=== PATIENT | female | born 1980 | race Caucasian/White ===

== ENCOUNTER 2017-01-27 00:29 | Emergency (ER) | payer BC ==
[2017-01-27 00:35] VITALS: RESP 18
[2017-01-27] MEDS ORDERED: DIPH,PERTUS(ACELL)TETVAC-LF 0.5 ML VIAL IM ONE (01:09)
[2017-01-27] MEDS ORDERED: LIDOCAINE/EPINEPHR/TETRACAINE 5 ML BOTTLE TOPICAL ONE (01:49)
--- NOTE | 2017-01-27 01:51 | ED ---
Wound/Laceration HPI - General Chief Complaint: Wound/Laceration Stated Complaint: chin lac Time Seen by Provider: 01/27/17 01:12 Source: patient, RN notes reviewed Mode of arrival: ambulatory Limitations: no limitations - History of Present Illness Initial Comments: Patient is a 36-year-old female presents to the emergency room for evaluation of chin laceration. Patient states she was dancing, tripped and hit her chin. Patient denies loss of consciousness. Patient denies dental pain. Patient denies any trouble moving her jaw her pain over her mandible. Patient states she is not sure when her last tetanus vaccine was. Patient denies headache or dizziness. Patient has fevers or chills. Patient denies taking any blood thinners. - Related Data Home Medications Medication Instructions Recorded Confirmed No Known Home Medications [No 01/27/17 01/27/17 Known Home Medications] Allergies Allergy/AdvReac Type Severity Reaction Status Date / Time measles, mumps, and rubella Allergy Unknown Verified 01/27/17 00:35 vaccine Review of Systems ROS Statement: Those systems with pertinent positive or pertinent negative responses have been documented in the HPI. ROS Other: All systems not noted in ROS Statement are negative. Past Medical History Past Medical History: No Reported History History of Any Multi-Drug Resistant Organisms: None Reported Past Surgical History: Section Past Psychological History: No Psychological Hx Reported Smoking Status: Former smoker Past Alcohol Use History: None Reported Past Drug Use History: None Reported General Exam - General Exam Comments Initial Comments: sitting in exam room, no acute distress. Limitations: no limitations General appearance: alert, in no apparent distress Head exam: Present: atraumatic, normocephalic, normal inspection Eye exam: Present: normal appearance ENT exam: Present: normal exam Neck exam: Present: normal inspection Respiratory exam: Absent: respiratory distress Extremities exam: Present: normal inspection Back exam: Present: normal inspection Neurological exam: Present: alert, oriented X3, CN II-XII intact, normal gait Psychiatric exam: Present: normal affect, anxious Skin exam: Present: warm, dry, other ( 3 cm U-shaped laceration over chin) Course Vital Signs 01/27/17 01/27/17 00:32 03:08 Temperature 100.0 F H 99.5 F Pulse Rate 147 H 78 Respiratory 18 18 Rate Blood Pressure 129/87 128/67 O2 Sat by Pulse 95 98 Oximetry Procedures - Laceration Laceration #1 Consent Obtained: verbal consent Indication: laceration Site: other (chin) Size (cm): 3 Description: irregular (U-shaped) Depth: simple, single layer Anesthetic Used: lidocaine 1% Anesthesia Technique: local infiltration Amount (mls): 3 Type of Sutures: nylon Size of Sutures: 6-0 Number of Sutures: 8 Technique: simple, interrupted Patient Tolerated Procedure: well, no complications Medical Decision Making - Medical Decision Making Patient is a 36 old female presents to the emergency room for evaluation of chin laceration. Laceration repaired sutures. Patient updated on a tetanus vaccine. Advised patient to return in 3-5 days for suture removal. Patient states she understands everything that was discussed with her. Return parameters discussed. Case discussed with Dr. Pro. Disposition Clinical Impression: Chin laceration Disposition: HOME SELF-CARE Condition: Good Instructions: Care For Your Stitches (ED), Facial Laceration (ED) Additional Instructions: Keep suture area clean and dry. Clean suture area with a damp cloth. Please return in 3-5 days for suture removal. Take Tylenol or Motrin as needed for pain. If any new symptom arises or symptoms worsen, return to ER as soon as possible. Referrals: None,Stated [Primary Care Provider] - 1-2 days Time of Disposition: 02:49
[2017-01-27 03:09] VITALS: BP 128/67; PULSE 78; TEMP 99.5
== END 2017-01-27 03:09 | disposition home or self-care (01) ==
LOC: EC 00:29
DX: S01.81XA Laceration without foreign body of other part of head, initial encounter (principal); Z23 Encounter for immunization; Z87.891 Personal history of nicotine dependence; Z88.7 Allergy status to serum and vaccine; W22.09XA Striking against other stationary object, initial encounter; Y93.41 Activity, dancing
CPT/HCPCS: 12013; 90471; 90715; 99282

== ENCOUNTER → 2021-07-01 | Outpatient (CLI) | payer BC | END | disposition home or self-care (01) | LOC: LABPAT 08:05 | PROVIDERS: ATTEND Obstetrics & Gynecology | DX: Z53.9 Procedure and treatment not carried out, unspecified reason (principal) ==

== ENCOUNTER 2021-07-03 05:47 | Day surgery (SDC) | payer BC ==
[2021-06-29 15:11] VITALS: BMI 21.2
--- NOTE | 2021-06-30 07:46 | P.HPOB ---
History of Present Illness H&P Date: 06/30/21 Chief Complaint: Missed 6 weeks This patient is a pleasant 41 yr female who has had serial ultrasounds showing a non-viable 6 weeks . BHCG was ~40,000. was unplanned but she was happy. No bleeding/pain. I discussed options including continued expectant management vs. suction D&C and she wishes to proceed with D&C. Review of Systems Genitourinary: Reports as per HPI, Reports Menstruation: Reports amenorrhea Past Medical History Past Medical History: No Reported History Additional Past Medical History / Comment(s): miscarriage History of Any Multi-Drug Resistant Organisms: None Reported Past Surgical History: Section Past Anesthesia/Blood Transfusion Reactions: No Reported Reaction Past Psychological History: No Psychological Hx Reported Smoking Status: Never smoker Past Drug Use History: None Reported Medications and Allergies Home Medications Medication Instructions Recorded Confirmed Type No Known Home Medications 01/27/17 06/29/21 History Allergies Allergy/AdvReac Type Severity Reaction Status Date / Time measles, mumps, and rubella Allergy Unknown Verified 06/29/21 14:52 vaccine Exam Intake and Output 06/29/21 06/30/21 06/30/21 22:59 06:59 14:59 Other: Weight 52.617 kg - OBG Physical Exam Abdomen: bowel sounds normal, no diffuse tenderness, no bruit present, no guarding noted, no hepatomegaly, no splenomegaly, no mass Vulva: both: normal Vagina: normal moisture, no discharge Cervix: no lesion, no discharge Uterus: normal size, normal contour Results Blood type is A+. Ultrasound shows a non-viable ~6 week gestation. Assessment and Plan Assessment: This is a pleasant 41 yr female estimated gestational age ~6 weeks with missed . Plan is suction D&C for treatment. I have discussed this surgery and risks with the patient: bleeding, infection, and/or possible uterine perforation. All of the patients questions were answered and a written consent obtained. (1) Missed Status: Acute Code(s): O02.1 - MISSED SNOMED Code(s): 62547142
[2021-07-01 09:17] LABS: Basophils # (A) 0.1 k/uL (0-0.2); Basophils % (A) 1 %; Eosinophils # (A) 0.1 k/uL (0-0.7); Eosinophils % (A) 1 %; HCT 41.1 % (34.0-46.0); Lymphocytes # (A) 1.8 k/uL (1.0-4.8); Lymphocytes % (A) 23 %; MCH 31.7 pg (25.0-35.0); MCHC 34.2 g/dL (31.0-37.0); MCV 92.7 fL (80.0-100.0); Mean Platelet Volume 8.7; Monocytes # (A) 0.3 k/uL (0-1.0); Monocytes % (A) 4 %; Neutrophils # (A) 5.4 k/uL (1.3-7.7); Neutrophils % (A) 70 %; Platelet Count 180 k/uL (150-450); RBC 4.43 m/uL (3.80-5.40); WBC 7.7 k/uL (3.8-10.6)
[~2021-07-03 05:47] MED LIST: DEXAMETHASONE SOD PHOSPHATE 4 MG/ML 1 ML VIAL IV ONE; LACTATED RINGERS 1,000 ML IV SCH; MIDAZOLAM 2 MG/2 ML VIAL IV PRN; ONDANSETRON 4 MG/2 ML VIAL IVP ONE; SCOPOLAMINE 1.5MG/72HR PATCH TRANSDERM ONE
[2021-07-03] MEDS ORDERED: LIDOCAINE 1% (10MG/ML) FOR IV START INTRADERMA ONE (06:10)
[2021-07-03] MEDS ORDERED: MIDAZOLAM 2 MG/2 ML VIAL IV ONE (06:36)
[2021-07-03] MEDS ORDERED: LIDOCAINE 1% INJ 10MG/ML (20 ML MDV) ONE (06:50)
[2021-07-03] MEDS ORDERED: fentaNYL (PF) 50 MCG/ML 2 ML AMP ONE (06:50)
[2021-07-03] MEDS ORDERED: PROPOFOL 10 MG/ML 20 ML VIAL IV ONE (06:50)
[2021-07-03] MEDS ORDERED: HYDROmorphone 0.5 MG/0.5 ML SYRINGE IVP PRN (07:00)
[2021-07-03] MEDS ORDERED: KETOROLAC 15 MG/ML 1 ML VIAL ONE (07:20)
--- NOTE | 2021-07-03 07:21 | P.OP ---
Date of Procedure: 07/03/21 Preoperative Diagnosis: Missed 6 weeks Postoperative Diagnosis: Same Procedure(s) Performed: Suction D&C Anesthesia: other (LMA) Surgeon: Ronald Mcwilliams Estimated Blood Loss (ml): 50 Urine output (ml): 25 Pathology: other (Uterine contents) Condition: stable Disposition: PACU Indications for Procedure: Please see dictated H&P for intimate details of this patient's admission. Brief summary is a pleasant 41-year-old female estimated gestational age 6 weeks with serial ultrasounds showing nonviable and beta hCG of 40,000+. Patient I discussed continued expected management versus treatment by suction D&C and she wished to proceed with suction D&C for treatment. She does understand the surgery and risks and risks of infection, bleeding, possible uterine perforation. All the patient's questions are answered written consent obtained. Operative Findings: This patient had uterine contents consistent with products of conception Description of Procedure: This patient is taken to the operating room where she is laid in the supine position. She subsequently goes under general anesthesia without incident. With an adequate level of anesthesia she's placed in dorsal lithotomy position. She has a vaginal perineal prep and drape. Examination under anesthesia shows a mid position uterus slightly enlarged. Bladder is drained at this time for 25 mL of clear urine. I placed a weighted speculum in the posterior vagina. The anterior lip of the cervix is then grasped with an Allis clamp. The cervix is then gently dilated to allow a 8 curved suction curette easily and the uterine cavity. Suction is applied and a large amount of tissue is removed. Multiple passes are made to no further tissue was noted. Further passes of the suction curet are then done until it is evident all tissue is been removed. Bleeding subsides at this time. At this time the procedure is ended. The Allis clamp and weighted speculum removed. All counts are correct 3. There are no comp lications. Patient is awakened from anesthesia and taken recovery room satisfactory condition.
[2021-07-03] MEDS ORDERED: KETOROLAC 15 MG/ML 1 ML VIAL IVP ONE (07:22)
[2021-07-03 07:26] VITALS: TEMP 97.6
[2021-07-03] MEDS ORDERED: LACTATED RINGERS 1,000 ML IV ONE (07:57)
[2021-07-03 08:05] VITALS: RESP 18
[2021-07-03 08:20] VITALS: BP 137/87; PULSE 68
== END 2021-07-03 08:30 | disposition home or self-care (01) ==
LOC: OR 05:47
PROVIDERS: ATTEND Obstetrics & Gynecology
DX: O02.1 Missed abortion (principal)
CPT/HCPCS: 86900; 86901; 88305; 85025; 86850; 36415; 59820; J2250; J1100; J2405; J2001; J3010; J1885; J2704